=== PATIENT | male | born 1970 | race Caucasian/White ===

== ENCOUNTER → 2017-01-07 | Day surgery (SDC) | payer OTHER, MEDICARE ==
[~2017-01-07] VITALS: Ht 193 cm; Wt 113.4 kg
[~2017-01-07] MED LIST: ABILIFY20 M1 PO; ADDERALL 30 MG30 MG PO; ALPRAZOLAM2 M2 PO; CYMBALTA60 M1 PO; DEXTROAMP-AMPHE20 MG PO; DULOXETINE HCL60 MG PO; HUMALOG100 UNIT/2 SC; LANTUS100 UNIT/1 SC; METHADONE H5 MG/5 M2 PO; METHADONE HCL10 M1 PO; QUETIAPINE FUM100 M1 PO; UNASYN 3 GM VIAL3 GM IV; VYVANSE60 M1 PO; XANAX0.25 M1 PO; XANAX2 M1 PO
--- NOTE | 2017-01-07 13:59 | Operative Report ---
Operative/Inv Procedure Report Surgery Date: 01/07/17 Name of Procedure: 1 open incision and drainage deep to the deep fascia with exposure of the flexor tendon and tendon sheath multiple sites left foot 2 partial revisional first and second ray resection left foot 3 intraoperative administration of ankle block anesthesia 4 excisional debridement Pre-Operative Diagnosis: 1 open necrotic wound with plantar space abscess left foot 2 osteomyelitis left foot 3 diabetic peripheral neuropathy Post-Operative Diagnosis: The same Estimated Blood Loss: less than 50ml Surgeon/Recruiting Consultant: JORY SHIELDS DPM Anesthesia: moderate sedation, block Operative/Procedure Note Note: After obtaining informed consent the patient was brought to the operating room and placed on the operating table in supine position. The patient isn't securely fastened to the operating table utilizing safety belt. After administration of IV sedation, 10 mL of 0.5% Marcaine plain was infiltrated about the patient's left ankle. The left foot and ankle within scrubbed prepped and draped in usual aseptic manner. Attention directed to the plantar aspect of the left foot where 6 cm x 6 cm Villasenor grade 4 ulceration was identified. There is necrotic slough overlying a mixed granular fibrotic wound bed. There is probing noted at the distal medial margin of the wound. A 7 cm curvilinear incision extending from the periphery portion the wound proximally along the medial margin of the foot was incised 15 blade was deepened and full-thickness flaps were developed dorsally and plantarly. The dissection was then carried down to the periosteum overlying the stump of the first and second metatarsals. These were resected with sagittal bone saw. Specimen was harvested for both microbiologic and pathologic inspection. The open wound was then irrigated with 3 L of normal sterile saline infused with 50,000 units of bacitracin. Following this, the foot was redraped and the surgeon's top was changed clean gloves. Any bleeding vessels identified were cauterized or ligated as encountered. The foot was then packed with 1 inch iodoform followed by 2 nylon was tension retention sutures placed at the skin margins. Incision was then dressed with Xeroform 4 x 4's Kerlix and Hamlet wrap. The patient is noted tolerate both procedure and anesthesia well and the patient was transported from the operating room to recovery by sent stable.
--- NOTE | 2017-01-07 17:49 | Surgical Discharge Summary ---
Visit Information Visit Dates Admission Date: 01/07/17 Discharge Date: 01/07/17 History of Present Illness Chief Complaint: Cl is a 46-year-old diabetic with history of poorly controlled blood sugars. Who has been followed in the wound Center for a chronic nonhealing ulcer to the plantar left foot. Unfortunately, her vital worsening and was noted to have a deep wound, which established an underlying osteomyelitis based on MRI findings. The patient is now admitted for IV antibiotics and surgical debridement. Medical History Neurological: peripheral neuropathy EENT: NONE Cardiovascular: hyperlipidemia Respiratory: NONE Gastrointestinal: NONE Hepatic: NONE Renal: NONE Musculoskeletal: NONE Psychiatric: PTSD ADHD Endocrine: diabetes Blood Disorders: BLOOD CLOT RIGHT LEG Cancer(s): NONE SURVIVAL SPECIALIST/Reproductive: NONE History of MRSA: Yes History of VRE: No History of CDIFF: No Surgical History Pertinent Surgical History: status post right leg embolectomy 7 years prior to admission status post left TMA status post right second, third ray resections and partial right fourth metatarsal resection Psychosocial History Who Do You Live With? Spouse Services at Home: None What is Your Primary Language? Croatian Review of Systems: Unremarkable except for that noted discharge present illness Hospital Course Course Attending Physician: JORY SHIELDS DPM Primary Care Physician: HINA GRAY MD Hospital Course: The patient was admitted to the floor after an open I&D and partial first and second ray resection left foot. The patient requested a discharge secondary to significant financial concerns. The risks associated with an unplanned discharge were reviewed with the patient, including additional need for surgery, possible limb loss and sepsis. Allergies: Coded Allergies: iodine (ANAPHYLAXIS 01/08/16) shellfish derived (ANAPHYLAXIS 01/08/16) Disposition Summary Disposition Principal Diagnosis: Osteomyelitis left foot Additional Diagnosis: Cellulitis left lower extremity Discharge Disposition: home or self care Discharge Instructions General Discharge Information Code Status: Full Code Patient's Diet: 2200 kcal ADA diet Patient's Activity: Strict nonweightbearing left lower extremity Follow-Up Instructions/Appts: Patient will follow up for revision and closure as an outpatient on Friday, with a tentatively planned placement of a PICC line. Medications at Discharge Discharge Medications: Continue taking these medications: Duloxetine HCl (Duloxetine HCl) 60 MG CAPSULE. 2 Capsule ORAL DAILY Qty = 60 Comments: Last Taken: 03/31/16 Time: 9 AM Lisdexamfetamine Dimesylate (Vyvanse) 60 MG CAPSULE 1 Capsule ORAL Every Morning Qty = 30 Comments: NOT GIVEN INPATIENT Insulin Lispro (Humalog) 100 UNIT/1 ML VIAL 16 Units Inject into fatty tissue BEFORE MEALS Qty = 10 Comments: ADMINISTED NOVOLOG AND LEVEMIR INPATIENT Quetiapine Fumarate (Quetiapine Fumarate) 100 MG TABLET 1 Tablet ORAL Every night as needed for PTSD Qty = 30 Comments: NOT GIVEN INPATIENT Insulin-Lantus (Lantus) 100 UNIT/1 ML VIAL 70 Unit Inject into fatty tissue Every night Days = 28 Comments: GIVEN NOVOLOG AND LEVEMIR INPATIENT Methadone Hydrochloride (Methadone HCl) 10 MG TABLET 90 Milligram ORAL DAILY Qty = 7 Comments: Last Taken:03/31/16 Time:9:30 AM Attending MD Review Statement Attending Statement Attending MD Statement: examined this patient
--- NOTE | 2017-01-07 17:53 | NUR ---
PT ARRIVED TO FLOOR A&O X 3. PT AND FAMILY UPSET REGARDING THIS ADMISSION AND REQUEST TO SPEAK TO MD. AND LOCK INSTALLER TO BEDSIDE TO SPEAK WITH PT /FAMILY REGARDING CURRENT INSURANCE/FINANCIAL ISSUE. ADMISSION CANCELED, PT TO LEAVE IN STABLE CONDITION WITH FAMILY.
== END ==
LOC: STS 00:53 → PACUH 13:35 → ENRESERV 14:44 → 2NA 16:06 → PACUH 16:06 → 2NA 18:36
DX: E11.621 Type 2 diabetes mellitus with foot ulcer (principal); M86.172 Other acute osteomyelitis, left ankle and foot; L97.424 Non-pressure chronic ulcer of left heel and midfoot with necrosis of bone; E11.42 Type 2 diabetes mellitus with diabetic polyneuropathy; Z79.4 Long term (current) use of insulin; I87.2 Venous insufficiency (chronic) (peripheral); Z89.422 Acquired absence of other left toe(s)
CPT/HCPCS: 87070; 87075; 87184; 87071; 87147; 88304; J0131; J1644; J1815; J2001

== ENCOUNTER → 2017-01-10 | Day surgery (SDC) | payer OTHER, MEDICARE ==
[~2017-01-10] VITALS: Ht 193 cm; Wt 113.4 kg
--- NOTE | 2017-01-10 16:23 | Cons- Infect Disease ---
General Information and HPI Consulting Request Date of Consult: 01/10/17 Requested By: JORY SHIELDS DPM Reason for Consult: Osteomyelitis of the left TMA stump Source of Information: patient, old records History of Present Illness: This is a 46-year-old man with diabetes, peripheral neuropathy, status post bilateral transmetatarsal amputations in the past year, with the development of an ulcer on the distal medial stump of the left foot several months ago and with a plantar ulcer on the right foot of unclear duration, with MRI of the left foot 8 days ago revealing evidence of osteomyelitis of the first metatarsal extending to the metatarsal base and involving the distal aspect of the second metatarsal remnant, status post partial revisional resection of the first and second rays of the left foot 3 days ago, with Unasyn prophylaxis, who was taken back to the OR today for further revision and closure of the wound. He is scheduled for discharge, with plans to place a PICC and initiate antibiotics as an outpatient based on the culture results from his recent surgery. He offers no complaints at this time. Allergies/Medications Allergies: Coded Allergies: iodine (ANAPHYLAXIS 01/08/16) shellfish derived (ANAPHYLAXIS 01/08/16) Home Med List: Alprazolam (Xanax) 2 MG TABLET 1 TAB PO TID ANXIETY (Reported) Aripiprazole (Abilify) 20 MG TABLET 1 TAB PO QAM MENTAL HEALTH (Reported) Dextroamphetamine/Amphetamine (Adderall 30 MG Tablet) 30 MG TABLET 1 TAB PO DAILY ADD (Reported) Duloxetine HCl 60 MG CAPSULE.DR 2 CAP PO DAILY MENTAL HEALTH (Reported) Duloxetine HCl (Cymbalta) 60 MG CAPSULE.DR 2 CAP PO DAILY PAIN (Reported) Insulin Lispro (Humalog) 100 UNIT/1 ML VIAL 18 U SC AC DIABETES (Reported) Insulin-Lantus (Lantus) 100 UNIT/1 ML VIAL 70 UNIT SC QPM DM (Reported) Lisdexamfetamine Dimesylate (Vyvanse) 60 MG CAPSULE 1 CAP PO QAM MENTAL HEALTH (Reported) Methadone Hydrochloride (Methadone HCl) 10 MG TABLET 90 MG PO DAILY Maintenance Quetiapine Fumarate 100 MG TABLET 1 TAB PO QPM PRN PTSD (Reported) Past History Medical History Neurological: peripheral neuropathy EENT: NONE Cardiovascular: chronic venous insuff, hyperlipidemia Respiratory: NONE Gastrointestinal: NONE Hepatic: NONE Renal: NONE Musculoskeletal: NONE Psychiatric: PTSD ADHD Endocrine: diabetes Blood Disorders: BLOOD CLOT RIGHT LEG Cancer(s): NONE BENCH CARPENTER/Reproductive: NONE History of MRSA: Yes History of VRE: No History of CDIFF: No Surgical History Surgical History: status post right leg embolectomy 7 years prior to admission status post left TMA status post right second, third ray resections and partial right fourth metatarsal resection Psychosocial History Services at Home: None Functional Ability ADLs Independent: dressing, eating, toileting, bathing. IADLs Independent: shopping, housework, finances, food prep, telephone, transportation , medication admin. Review of Systems Review of Systems All Other Systems: Reviewed and Negative Exam & Diagnostic Data Last 24 Hrs of Vital Signs/I&O Vital signs are stable Physical Exam Other Physical Findings: He is awake and alert in no acute distress. He is afebrile. Skin reveals no rash. HEENT exam is negative. Neck is supple with no adenopathy. Lungs are clear. Heart regular rhythm with no murmur. Abdomen is soft, nontender with positive bowel sounds. Back no CVA tenderness. Extremities left foot dressing intact; right foot status post TMA with plantar ulcer, with no surrounding inflammation; chronic venous stasis changes both lower extremities. Neuro is without focality. Last 24 Hours of Lab Results: No recent labs Pathology of the bone of the first and second metatarsals January 07 revealed features consistent with acute osteomyelitis Last 24 Hours of Twin Results: OR culture January 07 labeled left first and second toes positive for Escherichia coli sensitive to all antibiotics tested, alpha strep, MRSA, Group B strep and Enterobacter cloacae sensitive to Ciprofloxacin, Gentamicin and Bactrim Assessment/Plan Assessment/Plan Impression: This is a 46-year-old man with diabetes, status post bilateral TMA's, with a several month history of an ulcer at the distal medial stump of the left foot, with a recent MRI suggestive of osteomyelitis of the first metatarsal with extension to the metatarsal base and the distal aspect of the second metatarsal remnant, status post partial revisional first and second ray resections of the left foot 3 days ago, with the OR culture positive for multiple organisms, now status post revision and closure of the wound. He will require a four-week course of antibiotics for residual osteomyelitis based on the positive OR culture and pathology. The right foot plantar ulcer may also warrant further evaluation. Suggestion: 1. Would pursue placement of a PICC 2. Further management of his right foot plantar ulcer per Podiatry 3. Once the PICC is placed can begin Vancomycin 1.5 grams IV every 12 hours and Ciprofloxacin 750 mg po every 12 hours to plan on a four-week course 4. Would obtain a baseline CBC, ESR and CMP and x-ray of the left foot 5. Would follow CBC, ESR, BUN/creatinine and Vancomycin trough level weekly Consult Acknowledgment - Thank you for your consult request.
--- NOTE | 2017-01-10 16:44 | Operative Report ---
Operative/Inv Procedure Report Surgery Date: 01/10/17 Name of Procedure: 1 revisional open incision and drainage deep to the deep fascia with exposure of the flexor tendon and tendon sheath multiple sites left foot 2 delayed primary closure of open surgical wound with local random advancement flap 3 debridement of necrotic bone left foot 4 intraoperative administration of ankle block anesthesia 5 excisional debridement Pre-Operative Diagnosis: 1 open necrotic wound left foot 2 osteomyelitis left foot 3 diabetic peripheral neuropathy Post-Operative Diagnosis: The same Estimated Blood Loss: less than 50ml Surgeon/Ticket Seller: JORY SHIELDS DPM Anesthesia: moderate sedation, block Operative/Procedure Note Note: After obtaining informed consent the patient was brought to the operating room and placed on the operating table in the supine position. The patient was then securely fastened to the operating table utilizing safety belt. After administration of IV sedation, 10 mL of 0.5% Marcaine plain was infiltrated about the patient's left ankle. The left foot and ankle within scrubbed prepped and draped in usual aseptic manner. Attention was directed to the left foot, where a large full-thickness necrotic was identified. A 15 blade was utilized sharply revised skin margins and the dissection was carried down deep to the deep fascia with exposure of the flexor tendon and tendon sheath multiple sites, both proximally and distally. All necrotic nonviable and infected tissue sharply evacuated from the wound bed. The dissection was then carried down to the stumps of the first and second metatarsals which were freed and passed from the operative field. Specimen was sent for pathologic inspection. The open wound was then irrigated with 3 L of normal sterile saline infused with 50,000 units of bacitracin. Following this, the foot was redraped and the surgeon's top gloves were exchanged for clean gloves. Any bleeding vessels identified were cauterized or ligated as encountered. A dorsal and plantar flap was then developed with undermining, mobilization and advancement of the adjacent tissues. A dorsal flap was rotated inferiorly and secured at its central aspect with 2-0 Vicryl. Plantarly, the flap was similarly rotated superiorly and again fixated centrally with 2-0 Vicryl. The subtenons tissues were reapproximated with 3-0 Vicryl and the skin edges reapproximated with 3-0 nylon. The incision was dressed with Xeroform 4 x 4's Kerlix and an Hamlet wrap. The patient was noted to tolerate both procedure and anesthesia well and the patient was transported from the operating room to recovery with vital signs stable and vascular status intact to both the dorsal and plantar flaps.
== END ==
LOC: STS 01:59
DX: E11.621 Type 2 diabetes mellitus with foot ulcer (principal); M86.172 Other acute osteomyelitis, left ankle and foot; L97.524 Non-pressure chronic ulcer of other part of left foot with necrosis of bone; E11.42 Type 2 diabetes mellitus with diabetic polyneuropathy; Z79.4 Long term (current) use of insulin; I87.2 Venous insufficiency (chronic) (peripheral); Z89.422 Acquired absence of other left toe(s)
CPT/HCPCS: 88307; J2001; J2250